=== PATIENT | female | born 1960 | race Caucasian/White ===

== ENCOUNTER 2023-12-26 08:55 | Outpatient (CLI) | payer MEDICAID ==
[~2023-12-26 08:55] MED LIST: BACL10TA PO; BUDE10.23 IH; CEFU500T66 PO; CHLO473M2 PO; CLON-850 PO; DILT180C66 PO; FLUT16SP10; GABA-338 PO; HYDR-4353 PO; LORA10TA7 PO; METF-900 PO; NAPR-56 PO; OMEP20CA4 PO; OXYB5TAB21 PO; SIMV-42 PO; TIOT18CA7 IH
== END 2023-12-26 23:59 | disposition home or self-care (01) ==
LOC: RAD 08:55
PROVIDERS: ATTEND Nurse Practitioner Family
DX: K76.0 Fatty (change of) liver, not elsewhere classified (principal); R31.9 Hematuria, unspecified; J01.90 Acute sinusitis, unspecified; J32.0 Chronic maxillary sinusitis; J32.3 Chronic sphenoidal sinusitis; R16.0 Hepatomegaly, not elsewhere classified
CPT/HCPCS: 70486; 76700

== ENCOUNTER 2024-11-16 12:46 | Emergency (ER) | payer MEDICAID ==
[~2024-11-16] VITALS: Ht 167.6 cm; Wt 67.2 kg
[2024-11-16 12:53] VITALS: BP 117/75; PULSE 95; RESP 15; O2SAT 95
--- NOTE | 2024-11-16 15:40 | Physician Documentation ---
History of Present Illness ~ Chief Complaint: Diarrhea Stated Complaint: URINARY AND BOWEL COMPLICATIONS Time Seen by MD: 15:19 Primary Medical Doctor: [facility] The patient is seen Today with multiple vague complaints with the most recent being diarrhea for the last couple of weeks. Patient states she has had diarrhea off and on for a few years now. Patient states she has had about 10 colonoscopies and extensive workup from her GI specialist. Patient admits to history of peptic ulcer disease and GERD and states she does take a proton pump inhibitor AcipHex. Patient denies any chest pain or shortness of breath but does admit to some lower abdominal discomfort as well as epigastric discomfort. Patient admits to history of urinary tract infections and does admit to some mild dysuria currently but denies any flank pain or fevers. Patient has no other concern or complaint at this time. Medication Reconciliation Allergies: Coded Allergies: Cephalexin Monohydrate (Verified Allergy, Severe, 04/10/12) Penicillins (Verified Allergy, Severe, 04/10/12) Sulfa (Sulfonamide Antibiotics) (Verified Allergy, Severe, 04/10/12) amoxicillin trihydrate (Verified Allergy, Severe, 04/10/12) duloxetine HCl (Verified Allergy, Severe, 04/10/12) erythromycin base (Verified Allergy, Severe, 04/10/12) hydromorphone HCl (Verified Allergy, Severe, 04/10/12) levofloxacin (Verified Allergy, Severe, 04/10/12) lisinopril (Verified Allergy, Severe, 04/10/12) morphine (Verified Allergy, Severe, 04/10/12) niacin (Verified Allergy, Severe, 04/10/12) potassium clavulanate (Verified Allergy, Severe, 04/10/12) simvastatin (Verified Allergy, Severe, 04/10/12) sulfamethoxazole (Verified Allergy, Severe, 04/10/12) tetracycline (Verified Allergy, Severe, 04/10/12) trimethoprim (Verified Allergy, Severe, 04/10/12) Macrolide Antibiotics (Verified Allergy, Unknown, 11/28/23) Quinolones (Verified Allergy, Unknown, 11/28/23) acetaminophen (Verified Allergy, Unknown, 11/28/23) amoxicillin (Verified Allergy, Unknown, 11/28/23) atorvastatin (Verified Allergy, Unknown, 11/28/23) cephalexin (Verified Allergy, Unknown, 11/28/23) ciprofloxacin (Verified Allergy, Unknown, 11/28/23) clavulanic acid (Verified Allergy, Unknown, 11/28/23) doxycycline (Verified Allergy, Unknown, 11/28/23) duloxetine (Verified Allergy, Unknown, 11/28/23) hydromorphone (Verified Allergy, Unknown, 11/28/23) nitrofurantoin (Verified Allergy, Unknown, 11/28/23) prednisone (Verified Allergy, Unknown, 11/28/23) propoxyphene (Verified Allergy, Unknown, 11/28/23) tramadol (Verified Allergy, Unknown, 11/28/23) Uncoded Allergies: CONTRAST (Allergy, Severe, 04/10/12) THYOZIDE (Allergy, Severe, SWELLING, 10/16/14) CONTRAST DYE (Allergy, Unknown, 08/29/16) DIOZIDE (Allergy, Unknown, 10/16/14) Scheduled Baclofen (Baclofen), 1 TABLET PO BID, (Reported) Budesonide/Formoterol Fumarate (Symbicort 160-4.5 Mcg Inhaler), 10.2 GM IH BID, (Reported) Cefuroxime Axetil (Cefuroxime), 1 TAB PO Q12H Chlorhexidine Gluconate (Chlorhexidine Gluconate), 15 ML PO Q12H Clonazepam (Klonopin), 0.5 MG PO HS, (Reported) Diltiazem Hcl CD* (Cardizem CD*), 1 CAP PO DAILY, (Reported) Gabapentin* (Gabapentin*), 300 MG PO TID, (Reported) Hydrocodone Bit/Acetaminophen ([place] 10-325 Tablet), 1-2 TABLET PO Q4H, (Reported) Loratadine (Loratadine), 1 TABLET PO DAILY, (Reported) Metformin Hcl* (Metformin ER*), 500 MG PO BID, (Reported) Naproxen (Naproxen), 1 TAB PO Q12H Omeprazole (Prilosec), 1 CAP PO DAILY, (Reported) Oxybutynin Chloride (Oxybutynin Chloride), 1 TABLET PO BID, (Reported) Simvastatin* (Zocor*), 20 MG PO HS, (Reported) Tiotropium [place]* (Spiriva*), 18 MCG IH DAILY, (Reported) Miscellaneous Medications Fluticasone Propionate (Flonase), (Reported) Past Medical History Past Medical History: Hypertension, Constipation, Diverticulosis, GERD Past Surgical History: appendectomy, cholecystectomy, hysterectomy, orthopedic surgeries, other Patient History: (CAD) Coronary arteriosclerosis FATHER MOTHER (DM Type 2) Diabetes mellitus type 2 MOTHER Alcohol Use: Occasionally Drug Use: none Lives with: Family, Other Lives In: Home Occupation: employed Review of Systems Constitutional: Denies: chills, fever, weakness Eyes: Denies: pain, blurred vision ENT: Denies: ear pain, nose pain, throat pain, mouth pain Respiratory: Denies: cough, shortness of breath Cardiovascular: Denies: chest pain, palpitations Gastrointestinal: Denies: abdominal pain, nausea, vomiting Genitourinary: Denies: burning, dysuria Female Genitalia: Denies: vaginal discharge, pelvic pain Neurological: Denies: headache, dizziness Musculoskeletal: Denies: pain, swelling Integumentary: Denies: rash, lesions Allergic/Immunologic: Denies: hives, itching Hematologic/Lymphatic: Denies: no symptoms reported Psychiatric: Denies: depression, anxiety Physical Exam Vital Signs: Temperature: 98.0, Source: Temporal, Heart Rate: 95, Respiratory Rate: 15, BP: 117/75, Pulse Oximetry: 95, Weight: 67.200 Physical Exam General: Awake and Alert, no acute distress. HEENT: Conjunctiva pink, Sclera clear, Mucus Membranes moist. Neck: Supple without masses and tenderness. Resp: Unlabored. Lungs clear to auscultation bilaterally. Heart: Regular Rate and rhythm, normal S1 and S2 without murmur, rub or gallop. Abdomen: On exam patient does have tenderness to palpation epigastric area as well as suprapubic area. There is no rebound and no guarding and no masses. Abdomen is soft and nondistended. Extremities: No cyanosis,clubbing or edema. Skin: Warm and Dry. Progress Results/Orders Results/Orders Orders - SAURABH RODGERS PAC Saline Lock (11/16/24 ) Cult Urine + [place] [address] (11/16/24 17:30) Completed Orders - SAURABH RODGERS PAC Cbc/Diff (11/16/24 15:33) Lipase (11/16/24 15:33) MG (11/16/24 15:33) Prochlorperazine Inj (Compazine Inj) (11/16/24 15:35) Mag & Alum Hydrox/Simeth Susp (Maalox Or (11/16/24 15:35) Normal Saline 1000ml (Sodium Chloride 10 (11/16/24 15:35) Lidocaine 2% Viscous (Xylocaine 2% Visco (11/16/24 15:33) BMP (11/16/24 15:33) Pantoprazole 40mg Iv (Protonix 40mg Iv) (11/16/24 15:35) Dicyclomine Capsule (Bentyl Capsule) (11/16/24 15:38) Loperamide Capsule (Imodium Capsule) (11/16/24 15:38) Lacticsepsis (11/16/24 17:05) Procalcitonin (11/16/24 17:05) Ua W/Microscopic, Cult If Ind (11/16/24 17:11) Medications Received in ER Medications (Trade) Dose Ordered Sig/Eren Route PRN Reason Start Time Stop Time Status Last Admin Dose Admin (Compazine inj) 10 mg ONCE ONCE IV 11/16/24 15:35 11/16/24 15:43 DC 11/16/24 16:40 10 MG (Maalox oral suspension) 30 ml ONCE ONCE PO 11/16/24 15:35 11/16/24 15:43 DC 11/16/24 16:41 30 ML (sodium chloride 1000ml IV soln) 1,000 ml ONCE ONCE IVB 11/16/24 15:35 11/16/24 15:43 DC 11/16/24 16:30 1,000 ML (Xylocaine 2% Viscous 15mL cup) 15 ml ONCE STAT MM 11/16/24 15:33 11/16/24 15:43 DC 11/16/24 16:40 15 ML (Protonix 40mg IV) 40 mg ONCE ONCE IV 11/16/24 15:35 11/16/24 15:43 DC 11/16/24 16:40 40 MG (Bentyl capsule) 20 mg ONCE STAT PO 11/16/24 15:38 11/16/24 15:43 DC 11/16/24 16:41 20 MG (Imodium capsule) 2 mg ONCE STAT PO 11/16/24 15:38 11/16/24 15:43 DC 11/16/24 16:41 2 MG Vital Signs 11/16/24 11/16/24 12:53 16:14 Temp 98.0 Pulse 95 Resp 15 B/P (MAP) 117/75 Pulse Ox 95 Laboratory Tests Test 11/16/24 15:52 11/16/24 17:11 White Blood Count 11.9 H Red Blood Count 4.66 Hemoglobin 13.7 Hematocrit 40.8 Mean Corpuscular Volume 87.5 Mean Corpuscular Hemoglobin 29.5 Mean Corpuscular Hemoglobin Concent 33.6 Red Cell Distribution Width 14.0 Platelet Count 270 Mean Platelet Volume 7.7 Neutrophils (%) (Auto) 71.3 Lymphocytes (%) (Auto) 19.8 L Monocytes (%) (Auto) 7.7 Eosinophils (%) (Auto) 1.0 Basophils (%) (Auto) 0.2 Neutrophils # (Auto) 8.5 H Lymphocytes # (Auto) 2.4 Monocytes # (Auto) 0.9 Eosinophils # (Auto) 0.1 Basophils # (Auto) 0.0 CBC Comment Sodium Level 137 Potassium Level 3.2 L Chloride Level 100 Carbon Dioxide Level 31.1 Anion Gap 6 L Blood Urea Nitrogen 9 Creatinine 0.98 H Estimated GFR/1.73 m2 58 BUN/Creatinine Ratio 9.2 L Glucose Level 120 H Lactic Acid Level 0.9 Calcium Level 8.7 Magnesium Level 2.1 Albumin 3.3 L Lipase 32 Procalcitonin < 0.05 Chemistry Comments Urine Specimen Description Cln catch midstream Urine Color Straw Urine Clarity Clear Urine pH 6.0 Urine Specific [place] <=1.005 Urine Protein Negative Urine Glucose (UA) Negative Urine Ketones Negative Urine Occult Blood Small Urine Nitrite Negative Urine Bilirubin Negative Urine Urobilinogen 0.2 Urine Leukocyte Esterase Trace H Urine RBC 20-50 Urine WBC 10-20 H Urine Squamous Epithelial Cells Few Urine Bacteria 3+ Urine Mucus Few Urine Culture Indicated Indicated Volume Urine Centrifuged 10 ml Urine Comment Medical Decision Making Findings The patient is seen Today with multiple vague complaints with the most recent being diarrhea for the last couple of weeks. Patient states she has had diarrhea off and on for a few years now. Patient states she has had about 10 colonoscopies and extensive workup from her GI specialist. Patient admits to history of peptic ulcer disease and GERD and states she does take a proton pump inhibitor AcipHex. Patient denies any chest pain or shortness of breath but does admit to some lower abdominal discomfort as well as epigastric discomfort. Patient admits to history of urinary tract infections and does admit to some mild dysuria currently but denies any flank pain or fevers. Patient has no other concern or complaint at this time. Patient was treated in the ED today with GI cocktail, Compazine IV 10 mg, Bentyl 20 mg by mouth, lidocaine 2% viscous by mouth 15 mL, loperamide capsule 2 mg by mouth, Maalox 30 mL by mouth, normal saline bolus IV, pantoprazole 40 mg IV. Patient states she is feeling much better. Patient was also given ceftriaxone IM. Patient states she has previously tolerated this medication without an allergic reaction. Shared decision-making utilized with the patient today. Patient states she is feeling much better now we will be discharged on sucralfate to be taken as directed she will continue her PPI and she was given prescription for Bentyl as well as well as Macrobid 100 mg to be taken by mouth twice a day for five days. Departure Disposition: HOME / SELF CARE / HOMELESS Impression: Primary Impression: Urinary tract infection Qualified Codes: N30.01 - Acute cystitis with hematuria Additional Impression: PUD (peptic ulcer disease) Referrals: NO PRIMARY CARE PROVIDER (PCP) Prescriptions Loperamide Hcl (Loperamide) 2 Mg Capsule 2 CAP PO Q6H for loose stool for 5 Days, #40 CAP 0 Refills Prov: SAURABH RODGERS 11/16/24 Sucralfate (Sucralfate) 1 Gram Tablet 1 TAB PO Q6H for 30 Days, #120 TAB 0 Refills Prov: SAURABH RODGERS 11/16/24 Dicyclomine HCl (Dicyclomine HCl) 20 Mg Tablet 1 TAB PO Q12H for irritable bowel symptoms for 30 Days, #60 TAB 0 Refills Prov: SAURABH RODGERS 11/16/24 Signature Scribe Signature: No scribe Attestation: No scribe SAURABH RODGERS November 16, 2024 15:40
[2024-11-16 16:24] LABS: BASOPHILS % (AUTO) 0.2 % (0-1); EOSINOPHILS # (AUTO) 0.1 X10'3 (0-0.9); HEMATOCRIT 40.8 % (35.0-45.0); HEMOGLOBIN 13.7 g/dl (12.0-16.0); LYMPHOCYTES # (AUTO) 2.4 X10'3 (1.1-4.8); LYMPHOCYTES % (AUTO) 19.8 % (21-51); MEAN CORPUSCULAR HEMOGLOBIN 29.5 PG (27.0-31.0); MEAN CORPUSCULAR HGB CONC 33.6 g/dL (33.0-36.5); MEAN CORPUSCULAR VOLUME 87.5 FL (78-98); MEAN PLATELET VOLUME 7.7 FL (7.4-10.4); MONOCYTES # (AUTO) 0.9 X10'3 (0-0.9); MONOCYTES % (AUTO) 7.7 % (2-12); NEUTROPHILS # (AUTO) 8.5 X10'3 (1.8-7.7); NEUTROPHILS % (AUTO) 71.3 % (42-75); PLATELET COUNT 270 X10'3 (140-440); RED BLOOD COUNT 4.66 X10'6 (4.20-5.60); WHITE BLOOD COUNT 11.9 X10'3 (4.5-11.0)
[2024-11-16] MEDS: normal saline 1000ML IV soln IVB ONE (16:30)
[2024-11-16 16:36] LABS: ALBUMIN 3.3 G/DL (3.4-5.0); ANION GAP 6 (8-16); BLOOD UREA NITROGEN 9 MG/DL (7-18); BUN/CREATININE RATIO 9.2 (10.0-20.0); CALCIUM 8.7 MG/DL (8.5-10.1); CHLORIDE 100 MMOL/L (99-107); CREATININE 0.98 MG/DL (0.40-0.90); GLUCOSE 120 MG/DL (70-104); LIPASE 32 U/L (16-77); MAGNESIUM 2.1 MG/DL (1.5-2.4); POTASSIUM 3.2 MMOL/L (3.5-5.1); SODIUM 137 MMOL/L (135-145); TOTAL CARBON DIOXIDE 31.1 MMOL/L (24-32); eCRCL 56 ML/MIN; eGFR 58 ML/MIN
[2024-11-16] MEDS: LIDOcaine 2% Viscous 15ml cup MM STA (16:40)
[2024-11-16] MEDS: proCHLORperazine 10 MG/2 ml inj IV ONE (16:40)
[2024-11-16] MEDS: pantoprazole 40 MG vial IV ONE (16:40)
[2024-11-16] MEDS: mag hydrox/Alum hydrox/simeth 30ml oral suspension PO ONE (16:41)
[2024-11-16] MEDS: loperamide 2mg capsule PO STA (16:41)
[2024-11-16] MEDS: dicyclomine 10 MG capsule PO STA (16:41)
[2024-11-16 17:20] LABS: BILIRUBIN,URINE NEGATIVE (Neg); CLARITY,URINE CLEAR (Clear); COLOR,URINE STRAW (Yellow); GLUCOSE, URINE NEGATIVE (Neg); KETONES,URINE NEGATIVE (Neg); LEUKOCYTE ESTERASE ,URINE TRACE (Neg); NITRITES, URINE NEGATIVE (Neg); OCCULT BLOOD,URINE SMALL (Neg); PROTEIN,URINE NEGATIVE (Neg); UROBILINOGEN,URINE 0.2 E.U/dL (0.2-1.0)
[2024-11-16 17:21] LABS: UA COLLECTION TYPE CLN CATCH MIDSTREAM
[2024-11-16 17:28] LABS: RBC,URINE 20-50 /HPF (0-2)
[2024-11-16 17:29] LABS: BACTERIA,URINE 3+ /HPF (Neg); MUCUS STRANDS FEW /LPF (Neg); SQUAMOUS EPITHELIAL CELL,UR FEW /LPF (FEW)
[2024-11-16] MEDS ORDERED: LOPE2CAP PO (18:29)
[2024-11-16] MEDS ORDERED: DICY20TA17 PO (18:29)
[2024-11-16] MEDS ORDERED: SUCR1TAB PO (18:29)
[2024-11-16 18:41] VITALS: TEMP 98
[2024-11-16] MEDS: CefTRIAXone 1000mg IM Kit (w/lidocaine diluent) IM STA (18:45)
== END 2024-11-16 18:51 | disposition home or self-care (01) ==
LOC: ER 12:48
DX: N39.0 Urinary tract infection, site not specified (principal); K27.9 Peptic ulcer, site unspecified, unspecified as acute or chronic, without hemorrhage or perforation; I25.10 Atherosclerotic heart disease of native coronary artery without angina pectoris; I10 Essential (primary) hypertension; E11.9 Type 2 diabetes mellitus without complications; K21.9 Gastro-esophageal reflux disease without esophagitis; Z88.0 Allergy status to penicillin; Z88.2 Allergy status to sulfonamides; Z88.1 Allergy status to other antibiotic agents; Z88.5 Allergy status to narcotic agent; Z88.8 Allergy status to other drugs, medicaments and biological substances; Z90.49 Acquired absence of other specified parts of digestive tract; Z90.710 Acquired absence of both cervix and uterus; Z79.84 Long term (current) use of oral hypoglycemic drugs; Z79.899 Other long term (current) drug therapy; Z72.89 Other problems related to lifestyle
CPT/HCPCS: 36415; 80048; 81001; 83605; 83690; 83735; 84145; 85025; 87077; 87088; 87186; 96361; 96372; 96374; 96375; 99284; J0696; J0780; J2470; J7030

== ENCOUNTER 2024-11-25 22:44 | Emergency (ER) | payer MEDICAID ==
[~2024-11-25] VITALS: Ht 167.6 cm; Wt 67.0 kg
[~2024-11-25 22:44] MED LIST changes: +DICY20TA17 PO; +LOPE2CAP PO; +SUCR1TAB PO
--- NOTE | 2024-11-26 00:35 | Physician Documentation ---
History of Present Illness ~ Chief Complaint: Constipation Stated Complaint: CONSTIPATION Time Seen by MD: 00:34 Primary Medical Doctor: [facility] HPI 64-year-old female, history of IBS, who presents with multiple complaints including constipation. The patient tells me a long history of chronic abdominal symptoms including acid reflux, ulcers, diarrhea, constipation, abdominal pain. She has had an extensive workup in the past including imaging, she sees a GI specialist, has had endoscopy and colonoscopies multiple times. She is on a daily antacid medication and a generic form of sucralfate. She presents today with constipation. She tells me that she was seen here in the emergency department recently and at that time was having loose stools. She was started on some new medications including Imodium. Then over the past week or more, she has been having constipation. She tells me that she has not had a good bowel movement in the last 9 days. She is passing small hard stools. She feels like she has a hard stool ball in her rectum. She reports generalized abdominal pain but no significant focal pain. No vomiting. No fevers. She did take MiraLax today. No other treatments tried. Medication Reconciliation Allergies: Coded Allergies: Cephalexin Monohydrate (Verified Allergy, Severe, 04/10/12) Penicillins (Verified Allergy, Severe, 04/10/12) Sulfa (Sulfonamide Antibiotics) (Verified Allergy, Severe, 04/10/12) amoxicillin trihydrate (Verified Allergy, Severe, 04/10/12) duloxetine HCl (Verified Allergy, Severe, 04/10/12) erythromycin base (Verified Allergy, Severe, 04/10/12) hydromorphone HCl (Verified Allergy, Severe, 04/10/12) levofloxacin (Verified Allergy, Severe, 04/10/12) lisinopril (Verified Allergy, Severe, 04/10/12) morphine (Verified Allergy, Severe, 04/10/12) niacin (Verified Allergy, Severe, 04/10/12) potassium clavulanate (Verified Allergy, Severe, 04/10/12) simvastatin (Verified Allergy, Severe, 04/10/12) sulfamethoxazole (Verified Allergy, Severe, 04/10/12) tetracycline (Verified Allergy, Severe, 04/10/12) trimethoprim (Verified Allergy, Severe, 04/10/12) Macrolide Antibiotics (Verified Allergy, Unknown, 11/28/23) Quinolones (Verified Allergy, Unknown, 11/28/23) acetaminophen (Verified Allergy, Unknown, 11/28/23) amoxicillin (Verified Allergy, Unknown, 11/28/23) atorvastatin (Verified Allergy, Unknown, 11/28/23) cephalexin (Verified Allergy, Unknown, 11/28/23) ciprofloxacin (Verified Allergy, Unknown, 11/28/23) clavulanic acid (Verified Allergy, Unknown, 11/28/23) doxycycline (Verified Allergy, Unknown, 11/28/23) duloxetine (Verified Allergy, Unknown, 11/28/23) hydromorphone (Verified Allergy, Unknown, 11/28/23) nitrofurantoin (Verified Allergy, Unknown, 11/28/23) prednisone (Verified Allergy, Unknown, 11/28/23) propoxyphene (Verified Allergy, Unknown, 11/28/23) tramadol (Verified Allergy, Unknown, 11/28/23) Uncoded Allergies: CONTRAST (Allergy, Severe, 04/10/12) THYOZIDE (Allergy, Severe, SWELLING, 10/16/14) CONTRAST DYE (Allergy, Unknown, 08/29/16) DIOZIDE (Allergy, Unknown, 10/16/14) Scheduled Baclofen (Baclofen), 1 TABLET PO BID, (Reported) Budesonide/Formoterol Fumarate (Symbicort 160-4.5 Mcg Inhaler), 10.2 GM IH BID, (Reported) Cefuroxime Axetil (Cefuroxime), 1 TAB PO Q12H Chlorhexidine Gluconate (Chlorhexidine Gluconate), 15 ML PO Q12H Clonazepam (Klonopin), 0.5 MG PO HS, (Reported) Dicyclomine HCl (Dicyclomine HCl), 1 TAB PO Q12H Diltiazem Hcl CD* (Cardizem CD*), 1 CAP PO DAILY, (Reported) Gabapentin* (Gabapentin*), 300 MG PO TID, (Reported) Hydrocodone Bit/Acetaminophen ([place] 10-325 Tablet), 1-2 TABLET PO Q4H, (Reported) Loperamide Hcl (Loperamide), 2 CAP PO Q6H Loratadine (Loratadine), 1 TABLET PO DAILY, (Reported) Metformin Hcl* (Metformin ER*), 500 MG PO BID, (Reported) Naproxen (Naproxen), 1 TAB PO Q12H Omeprazole (Prilosec), 1 CAP PO DAILY, (Reported) Oxybutynin Chloride (Oxybutynin Chloride), 1 TABLET PO BID, (Reported) Simvastatin* (Zocor*), 20 MG PO HS, (Reported) Sucralfate (Sucralfate), 1 TAB PO Q6H Tiotropium [place]* (Spiriva*), 18 MCG IH DAILY, (Reported) Miscellaneous Medications Fluticasone Propionate (Flonase), (Reported) Past Medical History Past Medical History: Hypertension, Constipation, Diverticulosis, GERD Past Surgical History: appendectomy, cholecystectomy, hysterectomy, orthopedic surgeries, other Patient History: (CAD) Coronary arteriosclerosis FATHER MOTHER (DM Type 2) Diabetes mellitus type 2 MOTHER Alcohol Use: Occasionally Drug Use: none Lives with: Family, Other Lives In: Home Occupation: employed Review of Systems Constitutional: Denies: fever Gastrointestinal: Reports: abdominal pain, constipated; Denies: nausea, vomiting Physical Exam Vital Signs: Temperature: 98.3, Heart Rate: 80, Respiratory Rate: 16, BP: 174/78, Pulse Oximetry: 97, Weight: 67.000 Oxygen Flow Rate: 0 Physical Exam General: This is a overall well-appearing middle-aged female, extremely talkative, partner at bedside HEENT: Atraumatic, oropharynx is moist Heart: Regular rate and rhythm, normal-appearing peripheral perfusion Lungs: Clear breath sounds bilateral, normal work of breathing, normal oxygen saturation on room air Abdomen: Soft, nondistended, no grimacing or pain response to deep palpation in all quadrants while she is distracted, while she is watching me, she does report epigastric tenderness only Neuro: Alert and oriented, no focal deficits Psychiatric: Calm and cooperative with exam, very verbose Progress Results/Orders Results/Orders Orders - KYLE ENGLAND MD Mineral Oil Enema (Mineral Oil Enema) (11/26/24 01:30) Completed Orders - KYLE ENGLAND MD Glycerin Pediatric Rectal Supp (Glycerin (11/26/24 01:30) Magnesium Hydrox Oral Susp. (Milk Of Mag (11/26/24 01:30) Vital Signs 11/25/24 23:00 Temp 98.3 Pulse 80 Resp 16 B/P (MAP) 174/78 Pulse Ox 97 O2 Flow Rate 0 Medical Decision Making Diff Dx Pain:Considerations: Include: Bowel obstruction, Constipation Diff Dx Rectal:Considerations: Include: Impaction Additional Comments The patient presents with constipation, with multiple ongoing chronic abdominal complaints. She has a benign abdominal exam. She has no vomiting or fever. Per her history and exam I suspect that she has constipation related to irritable bowel syndrome and Imodium use. She does not appear clinically dehydrated. I doubt a medical or surgical emergency. She will be treated with a glycerin suppository, an enema, and milk of magnesia. She was given home care instructions including ongoing laxative use. She can follow up with her outpatient doctor or GI specialist. Departure Time of Disposition: 01:32 Disposition: HOME / SELF CARE / HOMELESS Impression: Primary Impression: Constipation Condition: Stable Discharge Instructions: Fecal Impaction Referrals: NO PRIMARY CARE PROVIDER (PCP) Education Educated: Patient, Family Educated regarding: diagnosis, treatment, need for follow up Signature Scribe Signature: na Attestation: KYLE Wills MD November 26, 2024 00:35
[2024-11-26] MEDS ORDERED: glycerin pediatric rectal suppository RC ONE (01:30)
[2024-11-26] MEDS: mineral oil 133ml enema RC PRN (02:10)
[2024-11-26] MEDS: magnesium hydroxide 30ml (MOM) UD suspension PO ONE (02:10)
[2024-11-26] MEDS: bisacodyl 10mg suppository rectal RC ONE (02:38)
[2024-11-26 02:39] VITALS: BP 126/76; PULSE 62; RESP 10; TEMP 98.3; O2SAT 95
== END 2024-11-26 02:41 | disposition home or self-care (01) ==
LOC: ER 22:45
DX: K59.00 Constipation, unspecified (principal); K21.9 Gastro-esophageal reflux disease without esophagitis; I10 Essential (primary) hypertension; I25.10 Atherosclerotic heart disease of native coronary artery without angina pectoris; Z88.0 Allergy status to penicillin; Z88.2 Allergy status to sulfonamides; Z88.5 Allergy status to narcotic agent; Z88.8 Allergy status to other drugs, medicaments and biological substances; Z90.49 Acquired absence of other specified parts of digestive tract; Z90.710 Acquired absence of both cervix and uterus
CPT/HCPCS: 99284

== ENCOUNTER 2024-12-04 14:29 | Inpatient (IN) | payer MEDICAID ==
[~2024-12-04] VITALS: Ht 170.2 cm; Wt 68.3 kg
--- NOTE | 2024-12-04 14:45 | Physician Documentation ---
History of Present Illness ~ General Chief Complaint: Multiple Medical Complaints Stated Complaint: KIDNEY PAIN Time Seen by MD: 15:11 Primary Medical Doctor: [facility] History of Present Illness Initial Comments 64-year-old female who presents to the emergency department with the complaints of dysuria, or frequent urination and suprapubic discomfort. Reports she has a longstanding history of recurrent UTIs interstitial cystitis. Most recently had a UTI he has never resolved. Reports that she was given an injection of ceftriaxone two weeks ago and given p.o. antibiotics however did not get better. He is awaiting cystoscopy for hematuria. She is a smoker. He is very aggravated that your symptoms have not been treated aggressively inappropriately. She does have systemic symptoms that of myalgias lower back pain and nausea. Patient has numerous allergies to antibiotics. Likely this is contributory to her failure of resolution. Medication Reconciliation Allergies: Coded Allergies: Cephalexin Monohydrate (Verified Allergy, Severe, 04/10/12) Penicillins (Verified Allergy, Severe, 04/10/12) Sulfa (Sulfonamide Antibiotics) (Verified Allergy, Severe, 04/10/12) amoxicillin trihydrate (Verified Allergy, Severe, 04/10/12) duloxetine HCl (Verified Allergy, Severe, 04/10/12) erythromycin base (Verified Allergy, Severe, 04/10/12) hydromorphone HCl (Verified Allergy, Severe, 04/10/12) levofloxacin (Verified Allergy, Severe, 04/10/12) lisinopril (Verified Allergy, Severe, 04/10/12) morphine (Verified Allergy, Severe, 04/10/12) niacin (Verified Allergy, Severe, 04/10/12) potassium clavulanate (Verified Allergy, Severe, 04/10/12) simvastatin (Verified Allergy, Severe, 04/10/12) sulfamethoxazole (Verified Allergy, Severe, 04/10/12) tetracycline (Verified Allergy, Severe, 04/10/12) trimethoprim (Verified Allergy, Severe, 04/10/12) Macrolide Antibiotics (Verified Allergy, Unknown, 11/28/23) Quinolones (Verified Allergy, Unknown, 11/28/23) acetaminophen (Verified Allergy, Unknown, 11/28/23) amoxicillin (Verified Allergy, Unknown, 11/28/23) atorvastatin (Verified Allergy, Unknown, 11/28/23) cephalexin (Verified Allergy, Unknown, 11/28/23) ciprofloxacin (Verified Allergy, Unknown, 11/28/23) clavulanic acid (Verified Allergy, Unknown, 11/28/23) doxycycline (Verified Allergy, Unknown, 11/28/23) duloxetine (Verified Allergy, Unknown, 11/28/23) hydromorphone (Verified Allergy, Unknown, 11/28/23) nitrofurantoin (Verified Allergy, Unknown, 11/28/23) prednisone (Verified Allergy, Unknown, 11/28/23) propoxyphene (Verified Allergy, Unknown, 11/28/23) tramadol (Verified Allergy, Unknown, 11/28/23) Uncoded Allergies: CONTRAST (Allergy, Severe, 04/10/12) THYOZIDE (Allergy, Severe, SWELLING, 10/16/14) CONTRAST DYE (Allergy, Unknown, 08/29/16) DIOZIDE (Allergy, Unknown, 10/16/14) Scheduled Baclofen (Baclofen), 1 TABLET PO BID, (Reported) Budesonide/Formoterol Fumarate (Symbicort 160-4.5 Mcg Inhaler), 10.2 GM IH BID, (Reported) Cefuroxime Axetil (Cefuroxime), 1 TAB PO Q12H Chlorhexidine Gluconate (Chlorhexidine Gluconate), 15 ML PO Q12H Clonazepam (Klonopin), 0.5 MG PO HS, (Reported) Dicyclomine HCl (Dicyclomine HCl), 1 TAB PO Q12H Diltiazem Hcl CD* (Cardizem CD*), 1 CAP PO DAILY, (Reported) Gabapentin* (Gabapentin*), 300 MG PO TID, (Reported) Hydrocodone Bit/Acetaminophen (Bailey 10-325 Tablet), 1-2 TABLET PO Q4H, (Reported) Loperamide Hcl (Loperamide), 2 CAP PO Q6H Loratadine (Loratadine), 1 TABLET PO DAILY, (Reported) Metformin Hcl* (Metformin ER*), 500 MG PO BID, (Reported) Naproxen (Naproxen), 1 TAB PO Q12H Omeprazole (Prilosec), 1 CAP PO DAILY, (Reported) Oxybutynin Chloride (Oxybutynin Chloride), 1 TABLET PO BID, (Reported) Simvastatin* (Zocor*), 20 MG PO HS, (Reported) Sucralfate (Sucralfate), 1 TAB PO Q6H Tiotropium [place]* (Spiriva*), 18 MCG IH DAILY, (Reported) Miscellaneous Medications Fluticasone Propionate (Flonase), (Reported) Past Medical History Past Medical History: Hypertension, Constipation, Diverticulosis, GERD Past Surgical History: appendectomy, cholecystectomy, hysterectomy, orthopedic surgeries, other Patient History: (CAD) Coronary arteriosclerosis FATHER MOTHER (DM Type 2) Diabetes mellitus type 2 MOTHER Alcohol Use: Occasionally Drug Use: none Lives with: Family, Other Lives In: Home Occupation: employed Review of Systems Genitourinary: Reports: burning, discharge, dysuria, frequency, flank pain, hematuria Physical Exam Physical Exam Vital Signs: RN Vital Signs have been reviewed: Yes, Temperature: 100.1, Heart Rate: 106, Respiratory Rate: 15, BP: 125/101, Pulse Oximetry: 94, Weight: 68.300 General Appearance: alert, WD/WN Head: normal inspection Face: normal inspection Pupils/EOM/Fundus: PERRLA Nose: normal inspection Oropharynx: normal inspection Neck: non-tender Respiratory: normal breath sounds Cardiovascular: normal peripheral pulses, regular rate, rhythm Back: normal inspection Extremities: normal range of motion Neurologic: oriented x4, practice managers II-XII nml as tested Motor / Sensory: no motor deficit, no sensory deficit Psychiatric: normal mood/affect Skin: normal color, warm/dry; No: rash Progress Results/Orders Results/Orders Orders - KYLE FOFANA PAC Culture Blood (12/04/24 15:42) Chest,Single View (12/04/24 15:42) Ultrasound Kidney Non Vasc (12/04/24 15:58) Page Hospitalist (12/04/24 17:23) Fill Out Med Reconciliation (12/04/24 17:23) Completed Orders - KYLE FOFANA PAC Electrocardiogram (12/04/24 15:42) Chest,Single View (12/04/24 15:42) Procalcitonin (12/04/24 15:42) Lacticsepsis (12/04/24 15:42) Normal Saline 1000ml (Sodium Chloride 10 (12/04/24 15:45) Ceftriaxone/[id number]-Uczgyojv 1gm (Rocephin 1 (12/04/24 15:45) Ultrasound Kidney Non Vasc (12/04/24 15:58) Medications Received in ER Medications (Trade) Dose Ordered Sig/Eren Route PRN Reason Start Time Stop Time Status Last Admin Dose Admin Sodium Chloride 1,000 ml @ 1,000 mls/hr ONCE ONCE IV 12/04/24 15:45 12/04/24 16:44 DC 12/04/24 16:35 1,000 MLS/HR Ceftriaxone Sodium 50 ml @ 100 mls/hr ONCE ONCE IV 12/04/24 15:45 12/04/24 16:14 DC 12/04/24 16:35 100 MLS/HR Vital Signs 12/04/24 12/04/24 12/04/24 12/04/24 14:33 16:01 16:36 18:14 Temp 100.1 Pulse 106 102 97 Resp 15 16 16 27 B/P (MAP) 125/101 136/63 (87) 157/83 (107) Pulse Ox 94 92 12/04/24 12/04/24 18:45 18:46 Pulse 73 Resp 16 16 B/P (MAP) 116/62 (80) Pulse Ox 94 Laboratory Tests Test 12/04/24 15:11 12/04/24 15:56 White Blood Count 5.3 Red Blood Count 4.68 Hemoglobin 13.8 Hematocrit 40.5 Mean Corpuscular Volume 86.5 Mean Corpuscular Hemoglobin 29.5 Mean Corpuscular Hemoglobin Concent 34.1 Red Cell Distribution Width 13.7 Platelet Count 184 Mean Platelet Volume 7.7 Neutrophils (%) (Auto) 75.2 H Lymphocytes (%) (Auto) 16.6 L Monocytes (%) (Auto) 7.9 Eosinophils (%) (Auto) 0 Basophils (%) (Auto) 0.3 Neutrophils # (Auto) 4.0 Lymphocytes # (Auto) 0.9 L Monocytes # (Auto) 0.4 Eosinophils # (Auto) 0.0 Basophils # (Auto) 0.0 CBC Comment Sodium Level 133 L Potassium Level 3.5 Chloride Level 97 L Carbon Dioxide Level 31.2 Anion Gap 5 L Blood Urea Nitrogen 7 Creatinine 0.88 Estimated GFR/1.73 m2 65 BUN/Creatinine Ratio 8.0 L Glucose Level 118 H Lactic Acid Level 1.2 Calcium Level 8.5 Magnesium Level 1.9 Total Bilirubin 0.3 Aspartate Amino Transf (AST/SGOT) 21 Alanine Aminotransferase (ALT/SGPT) 11 L Alkaline Phosphatase 74 Total Protein 6.9 Albumin 3.2 L Globulin 3.7 Albumin/Globulin Ratio 0.9 L Lipase 48 Procalcitonin < 0.05 Chemistry Comments Urine Specimen Description Mckeon cath Urine Color Dark yellow Urine Clarity Clear Urine pH 6.0 Urine Specific [place] >=1.030 Urine Protein 30 H Urine Glucose (UA) Negative Urine Ketones 15 H Urine Occult Blood Moderate H Urine Nitrite Negative Urine Bilirubin Negative Urine Urobilinogen 1.0 Urine Leukocyte Esterase Trace H Urine RBC 3-10 Urine WBC 30-50 H Urine Squamous Epithelial Cells Few Urine Bacteria 1+ Urine Coarse Granular Casts 0-3 Urine Mucus Few Urine Culture Indicated Indicated Volume Urine Centrifuged 10 ml Urine HCG, Qualitative Negative Urine Comment Microbiology Date/Time Source Procedure Growth Status 12/04/24 16:21 Urine Mckeon Cath Urine Culture - Preliminary Culture received. Resulted Medical Decision Making Differential Diagnosis 64-year-old female presents to the emergency department because she has failed outpatient therapy for urinary tract infection and now has systemic symptoms that likely that of consistent with early pyelonephritis. Patient is a benefit from hospitalization fluids and antibiotics along with consideration for ID consult. Patient's labs all reassuring, urinalysis consistent with urinary tract infection. No ELÍAS noted. Some imaging reassuring for no hydro and/or renal lithiasis or pyelo. Patient awaits evaluation by hospitalist for admission to the hospital for further management unresolved UTI and hematuria. Departure Disposition: ADMITTED INPATIENT Admitted to Inpatient Unit: to hospitalist Impression: Primary Impression: Recurrent UTI Additional Impressions: Hematuria Qualified Codes: R31.9 - Hematuria, unspecified Smoker Referrals: NO PRIMARY CARE PROVIDER (PCP) Additional Comment Medical Screen Exam History: This 64-year-old female presenting with flank pain and constipation, patient reports chills at home last bowel movement 11 days prior. Patient reports extensive medical history that she has been worked up by primary care provider for Exam: VITALS: Reviewed and as above. GENERAL: Alert, nontoxic appearing, no apparent distress. RESPIRATORY: No increased work of breathing, no respiratory distress, speaking in full clear sentences MSE performed in triage and patient returned to ED lobby by nursing staffThe note accurately reflects work and decisions made by me.BILLY Fried 12/04/24 14:45 Signature Scribe Signature: . Attestation: . BERNARD ALVARADOP Dec 04, 2024 14:45 KYLE FOFANA [facility] Dec 04, 2024 17:25
[2024-12-04 15:39] LABS: BASOPHILS % (AUTO) 0.3 % (0-1); EOSINOPHILS % (AUTO) 0 % (0-6); HEMATOCRIT 40.5 % (35.0-45.0); HEMOGLOBIN 13.8 g/dl (12.0-16.0); LYMPHOCYTES # (AUTO) 0.9 X10'3 (1.1-4.8); LYMPHOCYTES % (AUTO) 16.6 % (21-51); MEAN CORPUSCULAR HEMOGLOBIN 29.5 PG (27.0-31.0); MEAN CORPUSCULAR HGB CONC 34.1 g/dL (33.0-36.5); MEAN CORPUSCULAR VOLUME 86.5 FL (78-98); MEAN PLATELET VOLUME 7.7 FL (7.4-10.4); MONOCYTES # (AUTO) 0.4 X10'3 (0-0.9); MONOCYTES % (AUTO) 7.9 % (2-12); NEUTROPHILS % (AUTO) 75.2 % (42-75); PLATELET COUNT 184 X10'3 (140-440); RED BLOOD COUNT 4.68 X10'6 (4.20-5.60); RED CELL DISTRIBUTION WIDTH 13.7 % (11.5-14.5); WHITE BLOOD COUNT 5.3 X10'3 (4.5-11.0)
[2024-12-04 16:00] LABS: ALANINE AMINOTRANSFERASE 11 U/L (12-78); ALBUMIN 3.2 G/DL (3.4-5.0); ALBUMIN/GLOBULIN RATIO 0.9 (1.1-1.5); ALKALINE PHOSPHATASE 74 IU/L (46-116); ANION GAP 5 (8-16); ASPARTATE AMINO TRANSFERASE 21 U/L (10-37); BILIRUBIN,TOTAL 0.3 MG/DL (0.1-1.0); BLOOD UREA NITROGEN 7 MG/DL (7-18); CALCIUM 8.5 MG/DL (8.5-10.1); CHLORIDE 97 MMOL/L (99-107); CREATININE 0.88 MG/DL (0.40-0.90); GLUCOSE 118 MG/DL (70-104); LIPASE 48 U/L (16-77); POTASSIUM 3.5 MMOL/L (3.5-5.1); SODIUM 133 MMOL/L (135-145); TOTAL CARBON DIOXIDE 31.2 MMOL/L (24-32); TOTAL PROTEIN 6.9 G/DL (6.4-8.2); eCRCL 64 ML/MIN; eGFR 65 ML/MIN
[2024-12-04 16:12] LABS: BILIRUBIN,URINE NEGATIVE (Neg); CLARITY,URINE CLEAR (Clear); GLUCOSE, URINE NEGATIVE (Neg); KETONES,URINE 15 mg/dl (Neg); LEUKOCYTE ESTERASE ,URINE TRACE (Neg); NITRITES, URINE NEGATIVE (Neg); OCCULT BLOOD,URINE MODERATE (Neg); PROTEIN,URINE 30 mg/dl (Neg)
[2024-12-04 16:14] LABS: UA COLLECTION TYPE FOLEY CATH
[2024-12-04 16:17] LABS: COLOR,URINE DARK YELLOW (Yellow)
[2024-12-04 16:20] LABS: BACTERIA,URINE 1+ /HPF (Neg); MUCUS STRANDS FEW /LPF (Neg); SQUAMOUS EPITHELIAL CELL,UR FEW /LPF (FEW); WBC,URINE 30-50 /HPF (0-4)
[2024-12-04 16:21] LABS: COARSE GRANULAR CAST 0-3 /LPF (NEGATIVE)
--- NOTE | 2024-12-04 16:32 | RADIOLOGY REPORT ---
CHEST RADIOGRAPH Indication: SEPSIS Technique: Single frontal view of the chest was obtained The study is under penetrated. Technical factors render the study to be nondiagnostic . Repeat chest x-ray recommended. 1.
[2024-12-04] MEDS: CefTRIAXone/D5W-Rocephin 1gm 50 ML IV ONE (16:35)
[2024-12-04] MEDS: normal saline 1000ml 1,000 ML IV ONE (16:35)
[2024-12-04 17:03] LABS: MAGNESIUM 1.9 MG/DL (1.5-2.4)
--- NOTE | 2024-12-04 17:07 | ELECTROCARDIOGRAPH REPORT ---
[facility] Test Date: 2024-12-04 Test Time: 16:12:48 Pat Name: JENNIFER RENEE Department: [facility] Patient ID: [id number] Room: ORTHO [facility] Gender: F [employer]: : [id number] Requested By: KYLE FOFANA Order Number: [id number] Reading MD: Dr. Gumaro Travis Measurements Intervals [place] Rate: 100 P: 73 MD: 180 QRS: 66 QRSD: 90 T: 64 QT: 329 QTc: 425 Interpretive Statements Sinus tachycardia Anteroseptal infarct, age indeterminate Electronically Signed On 12-06-2024 6:35:[address] Gumaro Travis Please click the below link to view image of tracing.
[2024-12-04 17:18] LABS: URINE HCG NEGATIVE (NEG)
--- NOTE | 2024-12-04 17:49 | RADIOLOGY REPORT ---
RENAL ULTRASOUND CLINICAL HISTORY: HYdro/Pyelo TECHNIQUE: Multiple grayscale ultrasound images were obtained through the kidneys and urinary bladder . COMPARISON: None FINDINGS: Right kidney: Measures 10.0 x 4.7 x 6.0 cm. No hydronephrosis. Left kidney: Measures 11.8 x 5.7 x 5.3 cm. No hydronephrosis. Urinary bladder: Unremarkable. Prevoid volume is 467 mL. The left ureteral jet is seen. The right u reteral jet is not visualized. IMPRESSION: Normal size kidneys without evidence of hydronephrosis.
[2024-12-04] MEDS ORDERED: potassium Cl 20 mEq SR tablet PO PRN (20:35)
[2024-12-04] MEDS ORDERED: magnesium Cl slow-release 64mg tablet PO PRN (20:35)
[2024-12-04] MEDS ORDERED: ipratropium/albuterol 3ml nebule NEB PRN (20:35)
[2024-12-04] MEDS ORDERED: potassium Cl 40MEQ/1/2NS 520ml 520 ML IV PRN (20:35)
[2024-12-04] MEDS ORDERED: magnesium sulf-water 2g/50mL 50 ML IV PRN (20:35)
[2024-12-04] MEDS ORDERED: magnesium sulf-water 4G/100mL 100 ML IV PRN (20:35)
[2024-12-04 21:01] LABS: HEMOGLOBIN A1C 5.5 % (4.5-6.2)
[2024-12-04] MEDS: methylPREDNISolone sod succ 125mg/2ml vial IV ONE (21:11)
[2024-12-04] MEDS: normal saline 1000ml 1,000 ML IV SCH (21:12)
[2024-12-04] MEDS: acetaminophen 325mg tablet PO PRN (21:32)
[2024-12-04] MEDS: ondansetron/PF 4mg/2ml inj IV PRN (21:35)
[2024-12-04 22:00] VITALS: BP 152/62; PULSE 93; RESP 16; TEMP 97.2; O2SAT 93
[2024-12-04 22:21] VITALS: PULSE 93; RESP 16; O2SAT 93
[2024-12-04] MEDS: ipratropium/albuterol 3ml nebule NEB SCH (22:21)
[2024-12-04 22:31] VITALS: PULSE 95; RESP 16
--- NOTE | 2024-12-04 23:31 | HISTORY AND PHYSICAL-Residence ---
History & Physical Providers to CC Resident Creating Document: CALLI ELENA ZA ~ History of Present Illness Primary Medical Doctor: [facility] Reason for Admit\Complaint: Urinary symptoms, SOB History of Present Illness The patient is a 64-year-old female with a medical history of COPD, not on home oxygen, DM, HTN, recurrent urinary tract infections (five episodes this year) who presents with complaints of burning urination,, suprapubic discomfort, urinary frequency, and increased shortness of breath. She reports a longstanding history of recurrent UTIs, with the most recent episode couple of weeks so go never fully resolving despite outpatient oral antibiotic treatment. She is currently awaiting cystoscopy for evaluation of hematuria. She denies flank pain, but endorsed dysuria frequency, urgency, and persistent suprapubic tenderness. In addition, she reports worsening shortness of breath, productive cough with brownish sputum, and intermittent fever with chills. She continues to smoke half a pack per day, with a 50 pack year history. She uses two inhalers and nebulizer at home, but states that they have offered minimal relief during this episode. She denies recent travel, new exposure, or sick contacts. No nausea, vomiting, or chest pain reported. Allergies: Coded Allergies: Cephalexin Monohydrate (Verified Allergy, Severe, 12/04/24) Penicillins (Verified Allergy, Severe, 12/04/24) Sulfa (Sulfonamide Antibiotics) (Verified Allergy, Severe, 04/10/12) amoxicillin trihydrate (Verified Allergy, Severe, 12/04/24) duloxetine HCl (Verified Allergy, Severe, 12/04/24) erythromycin base (Verified Allergy, Severe, 12/04/24) hydromorphone HCl (Verified Allergy, Severe, 12/04/24) levofloxacin (Verified Allergy, Severe, 12/04/24) lisinopril (Verified Allergy, Severe, 12/04/24) morphine (Verified Allergy, Severe, 12/04/24) niacin (Verified Allergy, Severe, 12/04/24) potassium clavulanate (Verified Allergy, Severe, 12/04/24) simvastatin (Verified Allergy, Severe, 12/04/24) sulfamethoxazole (Verified Allergy, Severe, 12/04/24) tetracycline (Verified Allergy, Severe, 12/04/24) trimethoprim (Verified Allergy, Severe, 12/04/24) Macrolide Antibiotics (Verified Allergy, Unknown, 12/04/24) Quinolones (Verified Allergy, Unknown, 12/04/24) amoxicillin (Verified Allergy, Unknown, 12/04/24) atorvastatin (Verified Allergy, Unknown, 12/04/24) cephalexin (Verified Allergy, Unknown, 12/04/24) ciprofloxacin (Verified Allergy, Unknown, 12/04/24) clavulanic acid (Verified Allergy, Unknown, 12/04/24) doxycycline (Verified Allergy, Unknown, 12/04/24) duloxetine (Verified Allergy, Unknown, 12/04/24) hydromorphone (Verified Allergy, Unknown, 12/04/24) nitrofurantoin (Verified Allergy, Unknown, 12/04/24) prednisone (Verified Allergy, Unknown, 12/04/24) propoxyphene (Verified Allergy, Unknown, 12/04/24) tramadol (Verified Allergy, Unknown, 12/04/24) Uncoded Allergies: CONTRAST (Allergy, Severe, 04/10/12) THYOZIDE (Allergy, Severe, SWELLING, 10/16/14) CONTRAST DYE (Allergy, Unknown, 08/29/16) DIOZIDE (Allergy, Unknown, 10/16/14) Home Medications Home Medications Active Loperamide (Loperamide Hcl) 2 Mg Capsule 2 Cap PO Q6H 5 Days Sucralfate 1 Gram Tablet 1 Tab PO Q6H 30 Days Dicyclomine HCl 20 Mg Tablet 1 Tab PO Q12H 30 Days Chlorhexidine Gluconate 0.12 % Mouthwash 15 Ml PO Q12H 14 Days Swish and spit Naproxen 500 Mg Tablet 1 Tab PO Q12H Cefuroxime (Cefuroxime Axetil) 500 Mg Tablet 1 Tab PO Q12H 7 Days Reported Loratadine 10 Mg Tablet 1 Tablet PO DAILY Prilosec (Omeprazole) 20 Mg Capsule.dr 1 Cap PO DAILY Oxybutynin Chloride 5 Mg Tablet 1 Tablet PO BID Baclofen 10 Mg Tablet 1 Tablet PO BID Cardizem CD* (Diltiazem HCl) 180 Mg Cap.sr.24h 1 Cap PO DAILY [place]reys 10-325 Tablet (Acetaminophen/Hydrocodone Bitart) 1 Each Tablet 1-2 Tablet PO Q4H Flonase (Fluticasone Propionate) 16 Gm Dixon.susp Spiriva* (Tiotropium [place]) 18 Mcg Cap 18 Mcg IH DAILY Symbicort 160-4.5 Mcg Inhaler (Budesonide/Formoterol Fumarate) 10.2 Gm Hfa.aer.ad 10.2 Gm IH BID Zocor* (Simvastatin) 20 Mg Tablet 20 Mg PO HS Klonopin (Clonazepam) 0.5 Mg Tablet 0.5 Mg PO HS Gabapentin* (Gabapentin) 300 Mg Capsule 300 Mg PO TID Metformin ER* (Metformin HCl) 500 Mg Tab.sr.24h 500 Mg PO BID Past Medical History Past Medical History COPD, recurrent UTI, hypertension Past Surgical History Surgical History Comment Cholecystectomy, appendectomy, tubal ligation Family History Family History: (CAD) Coronary arteriosclerosis FATHER MOTHER (DM Type 2) Diabetes mellitus type 2 MOTHER Past Social History Social History Comment Current smoker, smokes half a pack a day, 50 pack year smoking history, denies consuming alcohol or using recreational drugs Smoking: Non-Smoker Alcohol Use: Occasionally Drug Use: None Lives with: Family, Other Lives In: Home Occupation: employed ROS All Other Systems: Reviewed and Negative ROS As stated above in the HPI, otherwise all systems are reviewed and negative. Genitourinary: Reports: burning, discharge, dysuria, frequency, flank pain, hematuria Exam Vitals: Vital Signs Date Time Temp Pulse Resp B/P (MAP) Pulse Ox O2 Delivery O2 Flow Rate FiO2 12/04/24 22:31 95 16 Room Air 0.0 12/04/24 22:21 93 21 12/04/24 18:46 12/04/24 14:33 100.1 General Appearance: Well developed, well nourished. Awake, alert and oriented x4, resting comfortably in bed, in no acute distress. HEENT: Atraumatic, normocephalic, ELISHA, EOMI. Normal oropharynx, moist oral mucosa. Neck: Trachea midline. Supple, normal ROM. No JVD, bruit, lymphadenopathy or masses, or other lesions. Respiratory: Diffuse bilateral expiratory wheeze Cardiac: RRR, no murmur, rub or gallop. Normal S1 and S2. GI: No tenderness. Abdomen symmetric, nondistended, soft, normal bowel sounds x4 quadrant normoactive. No guarding, no rebound or rigidity. No hepatosplenomegaly. No masses, no bruit, no flank pain bilaterally. Extremities: Normal ROM, no swelling, non-tender. Distal pulses full symmetrical, no clubbing, cyanosis, edema, capillary refill less than 2 seconds. Skin: Intact, dry, warm, no rashes or petechia. Neuro: Speech is clear, alert and oriented x4. No sensory or motor deficit, DTRs normal. Cranial nerves II to XII intact. Psych: Normal affect, good eye contact, no apparent hallucination, normal speech. Diagnostic Data Last Recorded Lab Results: 12/04/24 1511 12/04/24 1511 Advance Care Planning Advanced Care plannin - 30 Minutes Additional Plan Assessment and plan: 62-year-old female with a history of COPD, not on home oxygen, DM, hypertension, recurrent UTI, presenting with dysuria, suprapubic tenderness, urinary frequency, and worsening respiratory symptoms. Recurrent urinary tract infection Suspected persistent UTI UA suggestive of UTI, urine culture pending Longstanding history of recurrent UTIs, current symptoms include dysuria, urgency, frequency, and suprapubic discomfort Failed outpatient oral antibiotics; currently awaiting cystoscopy for hematuria Renal ultrasound no hydronephrosis Long list of medication allergies, need re verification. Rocephin 1 g IV daily initiated Outpatient follow up with upcoming cystoscopy Consider CT urogram if symptoms persist or concern for structural abnormality COPD exacerbation Suspected infectious triggers Reports increased dyspnea, cough with brown sputum, fever with chills Using inhalers and nebulizer with minimal benefits COVID test negative, no leukocytosis Maintain oxygen saturation between 90-94%; supplemental O2 via nasal canula if SpO2 <90% Solu-Medrol 125 mg IV bolus given Solu-Medrol 40 Mg IV twice daily Ceftriaxone 1 g IV daily Macrolide listed as allergen, Azithromycin not initiated DuoNeb nebulization every 4 hours as scheduled, and every 4 hours as needed Incentive spirometry Mild hyponatremia Sodium 133 likely multifactorial, infection, poor oral intake Monitor BMP Diabetes type 2 Hyperglycemia/hypoglycemia protocol in place Follow hemoglobin A1c GERD/PUD Continue omeprazole and sucralfate Chronic back pain Continue home medications DVT prophylaxis: Heparin subQ Code status: Full code Calli Elena Internal Medicine Resident I discussed the patient with the resident and agree with the assessment and plan as above. Yodit Dorman MD Critical Care Date of Service: Dec 04, 2024 Billing Provider: YODIT DORMAN MD,CALLI, RES Dec 04, 2024 23:31 YODIT DORMAN MD Dec 05, 2024 03:40
[2024-12-04] MEDS ORDERED: DEXTROSE 15 GM of carb/4 tabs (each vial/BOTTLE has 4 tablets) PO PRN ×2 (23:45)
[2024-12-04] MEDS ORDERED: glucagon, human recombinant 1mg kit SUBCUT PRN (23:45)
[2024-12-04] MEDS ORDERED: dextrose 50%-water 50ml dispensing syringe IV PRN ×2 (23:45)
[2024-12-05] VITALS (15 sets, daily range): BP systolic 114–151; BP diastolic 52–79; PULSE 77–108; RESP 15–18; TEMP 96.9–97.9; O2SAT 92–97
[2024-12-05] MEDS: sucralfate 1 gm tablet PO SCH (03:43)
[2024-12-05 04:49] LABS: BASOPHILS % (AUTO) 0.2 % (0-1); EOSINOPHILS % (AUTO) 0 % (0-6); HEMATOCRIT 40.6 % (35.0-45.0); HEMOGLOBIN 13.7 g/dl (12.0-16.0); LYMPHOCYTES # (AUTO) 0.5 X10'3 (1.1-4.8); LYMPHOCYTES % (AUTO) 15.3 % (21-51); MEAN CORPUSCULAR HEMOGLOBIN 29.2 PG (27.0-31.0); MEAN CORPUSCULAR HGB CONC 33.6 g/dL (33.0-36.5); MEAN CORPUSCULAR VOLUME 86.8 FL (78-98); MEAN PLATELET VOLUME 7.6 FL (7.4-10.4); MONOCYTES % (AUTO) 1.7 % (2-12); NEUTROPHILS # (AUTO) 2.4 X10'3 (1.8-7.7); NEUTROPHILS % (AUTO) 82.8 % (42-75); PLATELET COUNT 159 X10'3 (140-440); RED BLOOD COUNT 4.68 X10'6 (4.20-5.60); RED CELL DISTRIBUTION WIDTH 13.6 % (11.5-14.5); WHITE BLOOD COUNT 2.9 X10'3 (4.5-11.0)
[2024-12-05 05:09] LABS: ALANINE AMINOTRANSFERASE 13 U/L (12-78); ALBUMIN 2.9 G/DL (3.4-5.0); ALBUMIN/GLOBULIN RATIO 0.8 (1.1-1.5); ALKALINE PHOSPHATASE 73 IU/L (46-116); ANION GAP 7 (8-16); ASPARTATE AMINO TRANSFERASE 21 U/L (10-37); BILIRUBIN,TOTAL 0.2 MG/DL (0.1-1.0); BLOOD UREA NITROGEN 7 MG/DL (7-18); CALCIUM 8.5 MG/DL (8.5-10.1); CHLORIDE 105 MMOL/L (99-107); CHOL/HDL RATIO 4.5 (0.00-4.99); CHOLESTEROL 150 MG/DL (0-200); CREATININE 0.78 MG/DL (0.40-0.90); GLUCOSE 230 MG/DL (70-104); HDL CHOLESTEROL 33 MG/DL (35-60); LDL CHOLESTEROL 99 MG/DL (50-100); POTASSIUM 3.6 MMOL/L (3.5-5.1); SODIUM 139 MMOL/L (135-145); TOTAL CARBON DIOXIDE 27.5 MMOL/L (24-32); TOTAL PROTEIN 6.7 G/DL (6.4-8.2); TRIGLYCERIDES 70 MG/DL (20-135); eCRCL 73 ML/MIN; eGFR 75 ML/MIN
[2024-12-05] MEDS ORDERED: INSULIN LISPRO 100 UNIT/ML INSULN.PEN MULTI-DOSE SQ SCH (07:00)
[2024-12-05 07:36] LABS: TOTAL CELLS COUNTED 100
[2024-12-05 07:37] LABS: PLATELET ESTIMATE NORMAL
[2024-12-05] MEDS: K and/or MAG REPLACEMENT MC SCH (08:00)
[2024-12-05] MEDS: heparin, porcine 5000 units/ml vial SQ SCH (08:00)
[2024-12-05] MEDS: CefTRIAXone/D5W-Rocephin 1gm 50 ML IV SCH (09:11)
[2024-12-05] MEDS: methylPREDNISolone sod succ/PF 40mg inj. IV SCH (09:11)
[2024-12-05] MEDS ORDERED: GABA-535 PO (09:57)
[2024-12-05] MEDS: dicyclomine 10 MG capsule PO SCH (10:16)
[2024-12-05] MEDS: baclofen 10mg tablet PO SCH (10:16)
[2024-12-05] MEDS: oxybutynin 5mg tablet PO SCH (10:16)
[2024-12-05] MEDS: gabapentin 300mg capsule PO SCH (10:17)
[2024-12-05] MEDS: pantoprazole 40mg Tablet.DR PO SCH (10:18)
[2024-12-05] MEDS ORDERED: ALOG25TA2 PO (12:39)
[2024-12-05] MEDS ORDERED: DULA4.5P SQ (12:40)
[2024-12-05] MEDS ORDERED: MIRA25TA5 PO (12:46)
[2024-12-05] MEDS ORDERED: LOSA25TA41 PO (12:55)
[2024-12-05] MEDS ORDERED: RABE20TA32 PO (12:57)
[2024-12-05] MEDS ORDERED: DILT-94 PO (12:59)
[2024-12-05] MEDS ORDERED: MONT-40 PO (13:01)
[2024-12-05] MEDS ORDERED: acetaminophen 325mg tablet PO PRN (15:20)
[2024-12-05] MEDS: HYDROcodone/acetaminophen 10/325mg tab PO PRN (15:45)
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
[2024-12-05] MEDS: docusate sod 100mg capsule PO SCH (19:58)
[2024-12-05] MEDS ORDERED: loperamide 2mg capsule PO SCH (20:00)
[2024-12-05] MEDS ORDERED: chlorhexidine gluconate 15ml Cup****oral rinse MM SCH (20:00)
[2024-12-05] MEDS: clonazePAM 0.5mg tablet PO SCH (20:02)
[2024-12-05] MEDS: simvastatin 20mg tablet PO SCH (21:00)
[2024-12-06] VITALS (15 sets, daily range): BP systolic 103–147; BP diastolic 48–75; PULSE 76–102; RESP 14–20; TEMP 97.6–98.1; O2SAT 93–99
[2024-12-06] MEDS ORDERED: ACYC-126 PO (02:45)
[2024-12-06] MEDS ORDERED: CLIN60SO2 TOP (02:45)
[2024-12-06] MEDS ORDERED: ALBU10.7 PO (02:45)
[2024-12-06] MEDS ORDERED: HYDR-3686 PO (02:53)
[2024-12-06] MEDS ORDERED: PREVCR VG (02:53)
[2024-12-06] MEDS ORDERED: CARB10DR2 EACHEYE (02:53)
[2024-12-06] MEDS ORDERED: CYCL1DRO2 EACHEYE (02:53)
[2024-12-06 04:57] LABS: BASOPHILS % (AUTO) 0.1 % (0-1); EOSINOPHILS % (AUTO) 0 % (0-6); HEMATOCRIT 34.9 % (35.0-45.0); HEMOGLOBIN 11.7 g/dl (12.0-16.0); LYMPHOCYTES # (AUTO) 0.7 X10'3 (1.1-4.8); LYMPHOCYTES % (AUTO) 7.7 % (21-51); MEAN CORPUSCULAR HEMOGLOBIN 29.5 PG (27.0-31.0); MEAN CORPUSCULAR HGB CONC 33.6 g/dL (33.0-36.5); MEAN PLATELET VOLUME 8.2 FL (7.4-10.4); MONOCYTES # (AUTO) 0.5 X10'3 (0-0.9); MONOCYTES % (AUTO) 5.5 % (2-12); NEUTROPHILS # (AUTO) 8.2 X10'3 (1.8-7.7); NEUTROPHILS % (AUTO) 86.7 % (42-75); PLATELET COUNT 170 X10'3 (140-440); RED BLOOD COUNT 3.97 X10'6 (4.20-5.60); RED CELL DISTRIBUTION WIDTH 13.7 % (11.5-14.5); WHITE BLOOD COUNT 9.5 X10'3 (4.5-11.0)
[2024-12-06 05:29] LABS: ALANINE AMINOTRANSFERASE 11 U/L (12-78); ALBUMIN 2.6 G/DL (3.4-5.0); ALBUMIN/GLOBULIN RATIO 0.8 (1.1-1.5); ALKALINE PHOSPHATASE 60 IU/L (46-116); ANION GAP 10 (8-16); ASPARTATE AMINO TRANSFERASE 17 U/L (10-37); BILIRUBIN,TOTAL 0.1 MG/DL (0.1-1.0); BLOOD UREA NITROGEN 9 MG/DL (7-18); BUN/CREATININE RATIO 10.1 (10.0-20.0); CALCIUM 8.6 MG/DL (8.5-10.1); CHLORIDE 105 MMOL/L (99-107); CREATININE 0.89 MG/DL (0.40-0.90); GLUCOSE 291 MG/DL (70-104); POTASSIUM 3.8 MMOL/L (3.5-5.1); SODIUM 140 MMOL/L (135-145); TOTAL CARBON DIOXIDE 24.9 MMOL/L (24-32); eCRCL 64 ML/MIN; eGFR 64 ML/MIN
[2024-12-06] MEDS ORDERED: MIRABEGRON PO SCH (08:00)
[2024-12-06] MEDS ORDERED: non-formulary drug (Diltiazem HCl (Diltiazem 24Hr ER) 1 CAP) PO SCH (08:00)
[2024-12-06] MEDS ORDERED: losartan 25mg tablet PO SCH (08:00)
[2024-12-06] MEDS ORDERED: loratadine 10mg tablet PO SCH (08:00)
[2024-12-06] MEDS: FOSFOMYCIN TROMETHAMINE 3 GM PACKET PO ONE (08:30)
[2024-12-06] MEDS ORDERED: AMIT25TA23 PO (08:34)
[2024-12-06] MEDS ORDERED: GABA-1405 PO (08:34)
[2024-12-06] MEDS: gabapentin 300mg capsule PO SCH (16:51)
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
[2024-12-06] MEDS ORDERED: PRED10TA23 PO (19:38)
[2024-12-06] MEDS: amitriptyline 10mg tablet PO SCH (21:34)
[2024-12-06] MEDS: polyethylene glycol 3350 17gm powd pack PO ONE (22:48)
[2024-12-07] VITALS (11 sets, daily range): BP systolic 102–156; BP diastolic 46–69; PULSE 67–79; RESP 16–20; TEMP 97.6–97.7; O2SAT 95–96
[2024-12-07 06:17] LABS: BASOPHILS % (AUTO) 0.1 % (0-1); EOSINOPHILS % (AUTO) 0.1 % (0-6); HEMATOCRIT 36.7 % (35.0-45.0); HEMOGLOBIN 12.3 g/dl (12.0-16.0); LYMPHOCYTES # (AUTO) 2.2 X10'3 (1.1-4.8); LYMPHOCYTES % (AUTO) 20.7 % (21-51); MEAN CORPUSCULAR HEMOGLOBIN 29.3 PG (27.0-31.0); MEAN CORPUSCULAR HGB CONC 33.6 g/dL (33.0-36.5); MEAN CORPUSCULAR VOLUME 87.3 FL (78-98); MEAN PLATELET VOLUME 7.9 FL (7.4-10.4); MONOCYTES # (AUTO) 0.9 X10'3 (0-0.9); MONOCYTES % (AUTO) 8.6 % (2-12); NEUTROPHILS # (AUTO) 7.4 X10'3 (1.8-7.7); NEUTROPHILS % (AUTO) 70.5 % (42-75); PLATELET COUNT 198 X10'3 (140-440); RED BLOOD COUNT 4.21 X10'6 (4.20-5.60); RED CELL DISTRIBUTION WIDTH 13.8 % (11.5-14.5); WHITE BLOOD COUNT 10.5 X10'3 (4.5-11.0)
[2024-12-07 06:29] LABS: ALANINE AMINOTRANSFERASE 17 U/L (12-78); ALBUMIN 2.8 G/DL (3.4-5.0); ALBUMIN/GLOBULIN RATIO 0.9 (1.1-1.5); ALKALINE PHOSPHATASE 61 IU/L (46-116); ANION GAP 4 (8-16); ASPARTATE AMINO TRANSFERASE 12 U/L (10-37); BILIRUBIN,TOTAL 0.2 MG/DL (0.1-1.0); BLOOD UREA NITROGEN 8 MG/DL (7-18); BUN/CREATININE RATIO 10.8 (10.0-20.0); CALCIUM 8.6 MG/DL (8.5-10.1); CHLORIDE 103 MMOL/L (99-107); CREATININE 0.74 MG/DL (0.40-0.90); GLUCOSE 130 MG/DL (70-104); POTASSIUM 3.3 MMOL/L (3.5-5.1); SODIUM 139 MMOL/L (135-145); TOTAL CARBON DIOXIDE 31.8 MMOL/L (24-32); eCRCL 77 ML/MIN; eGFR 80 ML/MIN
[2024-12-07] MEDS: methylPREDNISolone sod succ/PF 40mg inj. IV SCH (09:18)
[2024-12-07] MEDS ORDERED: HYDR-3973 PO (10:00)
[2024-12-07] MEDS ORDERED: CLON1TAB23 PO (10:00)
[2024-12-07] MEDS ORDERED: LACT10SO78 PO (10:23)
[2024-12-07] MEDS: potassium Cl 20 mEq SR tablet PO PRN (14:26)
[2024-12-07] MEDS: FOSFOMYCIN TROMETHAMINE 3 GM PACKET PO ONE (14:27)
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
== END 2024-12-07 14:47 | disposition home or self-care (01) | DRG 463 ==
LOC: ER 14:29 → ORTHO 4S 20:38
PROVIDERS: ADMIT Internal Medicine Pulmonary Disease; ATTEND Internal Medicine
DX: N39.0 Urinary tract infection, site not specified (principal); E87.1 Hypo-osmolality and hyponatremia; J44.1 Chronic obstructive pulmonary disease with (acute) exacerbation; F17.200 Nicotine dependence, unspecified, uncomplicated; I25.10 Atherosclerotic heart disease of native coronary artery without angina pectoris; Z20.822 Contact with and (suspected) exposure to COVID-19; K27.9 Peptic ulcer, site unspecified, unspecified as acute or chronic, without hemorrhage or perforation; K21.9 Gastro-esophageal reflux disease without esophagitis; G89.29 Other chronic pain; M54.89 Other dorsalgia; I10 Essential (primary) hypertension; Z90.710 Acquired absence of both cervix and uterus; Z90.49 Acquired absence of other specified parts of digestive tract; Z88.1 Allergy status to other antibiotic agents; Z88.5 Allergy status to narcotic agent; Z88.0 Allergy status to penicillin; Z88.2 Allergy status to sulfonamides; Z88.8 Allergy status to other drugs, medicaments and biological substances; Z91.041 Radiographic dye allergy status
CPT/HCPCS: 36415; 71045; 76770; 80053; 80061; 81001; 81025; 83036; 83605; 83690; 83735; 84145; 85007; 85025; 85651; 87040; 87081; 87088; 87811; 93005; 94640; 94760; 96365; 96375; 99285; A4615; G0378; J0696; J1644; J1815; J2405; J2919; J7030

== ENCOUNTER 2025-03-12 16:38 | Emergency (ER) | payer MEDICAID ==
[~2025-03-12] VITALS: Ht 170.2 cm; Wt 89.4 kg
[~2025-03-12 16:38] MED LIST changes: +ACYC-126 PO; +ALBU10.7 PO; +ALOG25TA2 PO; +AMIT25TA23 PO; +CARB10DR2 EACHEYE; -CEFU500T66 PO; +CLIN60SO2 TOP; +CLON1TAB23 PO; +CYCL1DRO2 EACHEYE; +DILT-94 PO; -DILT180C66 PO; +DULA4.5P SQ; +GABA-1405 PO; -GABA-338 PO; +HYDR-3686 PO; +LACT10SO78 PO; +LOSA25TA41 PO; +MIRA25TA5 PO; +MONT-40 PO; +PREVCR VG; +RABE20TA32 PO
--- NOTE | 2025-03-12 17:02 | Physician Documentation ---
History of Present Illness ~ Chief Complaint: Flank Pain Stated Complaint: KIDNEY PAIN Time Seen by MD: 19:08 Primary Medical Doctor: [facility] HPI Patient is seen today with complaints of hematuria with blood in the urine and concerns for flank pain bilaterally that seems to be chronic in nature. Patient states she does have an appointment with Urology coming up soon. Patient denies any fever or chills Patient presents to the emergency room with strange feeling today as she is concerned she may have a urinary tract infection or something else going on therefore came in to be evaluated. Has not appointment two days with urologist. Patient's hematuria is chronic in nature. Medication Reconciliation Allergies: Coded Allergies: Cephalexin Monohydrate (Verified Allergy, Severe, 12/04/24) Penicillins (Verified Allergy, Severe, 12/04/24) Sulfa (Sulfonamide Antibiotics) (Verified Allergy, Severe, 04/10/12) amoxicillin trihydrate (Verified Allergy, Severe, 12/04/24) duloxetine HCl (Verified Allergy, Severe, 12/04/24) erythromycin base (Verified Allergy, Severe, 12/04/24) hydromorphone HCl (Verified Allergy, Severe, 12/04/24) levofloxacin (Verified Allergy, Severe, 12/04/24) lisinopril (Verified Allergy, Severe, 12/04/24) morphine (Verified Allergy, Severe, 12/04/24) niacin (Verified Allergy, Severe, 12/04/24) potassium clavulanate (Verified Allergy, Severe, 12/04/24) simvastatin (Verified Allergy, Severe, 12/04/24) sulfamethoxazole (Verified Allergy, Severe, 12/04/24) tetracycline (Verified Allergy, Severe, 12/04/24) trimethoprim (Verified Allergy, Severe, 12/04/24) Macrolide Antibiotics (Verified Allergy, Unknown, 12/04/24) Quinolones (Verified Allergy, Unknown, 12/04/24) amoxicillin (Verified Allergy, Unknown, 12/04/24) atorvastatin (Verified Allergy, Unknown, 12/04/24) ceftriaxone (Verified Allergy, Unknown, 12/06/24) cefuroxime (Verified Allergy, Unknown, 12/06/24) cephalexin (Verified Allergy, Unknown, 12/04/24) ciprofloxacin (Verified Allergy, Unknown, 12/04/24) clavulanic acid (Verified Allergy, Unknown, 12/04/24) doxycycline (Verified Allergy, Unknown, 12/04/24) duloxetine (Verified Allergy, Unknown, 12/04/24) hydromorphone (Verified Allergy, Unknown, 12/04/24) metronidazole (Verified Allergy, Unknown, 12/06/24) nitrofurantoin (Verified Allergy, Unknown, 12/04/24) prednisone (Verified Allergy, Unknown, 12/04/24) propoxyphene (Verified Allergy, Unknown, 12/04/24) tramadol (Verified Allergy, Unknown, 12/04/24) Uncoded Allergies: CONTRAST (Allergy, Severe, 04/10/12) THYOZIDE (Allergy, Severe, SWELLING, 10/16/14) CONTRAST DYE (Allergy, Unknown, 08/29/16) DIOZIDE (Allergy, Unknown, 10/16/14) Scheduled Acyclovir (Acyclovir), 1 TAB PO BID, (Reported) Albuterol Sulfate/Budesonide (Airsupra 90-80 Mcg Inhaler), 2 PUFFS PO Q4H, (R eported) Alogliptin Benzoate (Alogliptin), 1 TAB PO DAILY, (Reported) Amitriptyline Hcl (Amitriptyline Hcl), 1 TAB PO HS Baclofen (Baclofen), 1 TABLET PO BID, (Reported) Budesonide/Formoterol Fumarate (Symbicort 160-4.5 Mcg Inhaler), 10.2 GM IH BID, (Reported) Carboxymethylcellulos/Glycerin (Refresh Optive Gel Eye Drops), DROP EACHEYE DAILY, (Reported) Chlorhexidine Gluconate (Chlorhexidine Gluconate), 15 ML PO Q12H Clonazepam (Klonopin), 0.5 MG PO HS, (Reported) Clonazepam (Clonazepam), 1 TAB PO DAILY Cyclosporine (Restasis), DROP EACHEYE BID, (Reported) Dicyclomine HCl (Dicyclomine HCl), 1 TAB PO Q12H Diltiazem HCl (Diltiazem 24Hr ER), 1 CAP PO DAILY, (Reported) Dulaglutide (Trulicity), 0.5 ML SQ Q7D, (Reported) Estrogens,Conjugated (PREMARIN Vaginal Cream), 1 GM VG MWF, (Reported) Gabapentin (Gabapentin), 1 TAB PO Q8H Hydrocodone Bit/Acetaminophen ([place] 10-325 Tablet), 1-2 TABLET PO Q4H, (Reported) Hydroxyzine Hcl* (Atarax*), 1 TAB PO DAILY, (Reported) Lactulose (Lactulose), 30 ML PO Q12H Loperamide Hcl (Loperamide), 2 CAP PO Q6H Loratadine (Loratadine), 1 TABLET PO DAILY, (Reported) Losartan Potassium (Losartan Potassium), 0.5 TAB PO DAILY, (Reported) Metformin Hcl* (Metformin ER*), 500 MG PO BID, (Reported) Mirabegron (Mirabegron ER), 1 TAB PO DAILY, (Reported) Montelukast Sodium (Montelukast Sodium), 1 TAB PO DAILY, (Reported) Naproxen (Naproxen), 1 TAB PO Q12H Omeprazole (Prilosec), 1 CAP PO DAILY, (Reported) Oxybutynin Chloride (Oxybutynin Chloride), 1 TABLET PO BID, (Reported) Rabeprazole Sodium (Rabeprazole Sodium), 1 TAB PO DAILY, (Reported) Simvastatin* (Zocor*), 20 MG PO HS, (Reported) Sucralfate (Sucralfate), 1 TAB PO Q6H Sucralfate (Sucralfate), 1 TAB PO Q8H Tiotropium [place]* (Spiriva*), 18 MCG IH DAILY, (Reported) Scheduled PRN Hydrocodone Bit/Acetaminophen (Hydrocodone-Apap 10-325 Tablet), 1 TAB PO TID PRN PRN for pain Miscellaneous Medications Clindamycin Phosphate (Clindamycin Phosphate), 1 UNIT TOP, (Reported) Fluticasone Propionate (Flonase), (Reported) Past Medical History Past Medical History: Hypertension, Constipation, Diverticulosis, GERD Past Surgical History: appendectomy, cholecystectomy, hysterectomy, orthopedic surgeries, other Patient History: (CAD) Coronary arteriosclerosis FATHER MOTHER (DM Type 2) Diabetes mellitus type 2 MOTHER Alcohol Use: Occasionally Drug Use: none Lives with: Family, Other Lives In: Home Occupation: employed Review of Systems ROS All review of systems negative except as per HPI Physical Exam Vital Signs: Temperature: 97.2, Source: Temporal, Heart Rate: 89, Respiratory Rate: 18, BP: 158/91, Pulse Oximetry: 97, Weight: 89.400 Oxygen Flow Rate: 0 Physical Exam General: Patient is awake, alert, oriented x4 in no acute distress and well appearing.~ Head: Normocephalic and atraumatic. Eyes: Conjunctival normal. EOMI. PERRL. ENT: Mucous membranes moist. Neck: Supple, trachea is midline. Chest: Clear to auscultation bilaterally without rales, rhonchi, or wheezes. There is no accessory muscle use or retractions. Cardiac: RRR without murmurs, gallops, or rubs. Back: Right-sided flank tenderness to palpation. Patient makes adjustments in her bed occasionally without limitation or signs of discomfort Progress Results/Orders Results/Orders Vital Signs 03/12/25 03/12/25 03/12/25 03/12/25 16:51 17:19 17:53 18:50 Temp 97.2 97.2 Pulse 89 78 73 Resp 18 18 16 16 B/P (MAP) 158/91 143/72 (95) 160/89 (112) Pulse Ox 97 98 98 O2 Flow Rate 0 0 0 03/12/25 19:37 Pulse 74 Resp 16 B/P (MAP) 156/89 Pulse Ox 95 Laboratory Tests Test 03/12/25 16:55 03/12/25 16:59 Urine Specimen Description Cln catch midstream Urine Color Yellow Urine Clarity Clear Urine pH 6.0 Urine Specific [place] 1.015 Urine Protein Negative Urine Glucose (UA) Negative Urine Ketones Trace H Urine Occult Blood Moderate H Urine Nitrite Negative Urine Bilirubin Negative Urine Urobilinogen 0.2 Urine Leukocyte Esterase Negative Urine RBC 3-10 Urine WBC 0-4 Urine Squamous Epithelial Cells None seen Urine Bacteria None seen Urine Culture Indicated Not ind Volume Urine Centrifuged 10 ml Urine HCG, Qualitative Negative Urine Comment White Blood Count 8.0 Red Blood Count 4.78 Hemoglobin 13.9 Hematocrit 41.1 Mean Corpuscular Volume 86.1 Mean Corpuscular Hemoglobin 29.2 Mean Corpuscular Hemoglobin Concent 33.9 Red Cell Distribution Width 14.6 H Platelet Count 268 Mean Platelet Volume 8.0 Neutrophils (%) (Auto) 61.0 Lymphocytes (%) (Auto) 28.2 Monocytes (%) (Auto) 9.0 Eosinophils (%) (Auto) 1.3 Basophils (%) (Auto) 0.5 Neutrophils # (Auto) 4.9 Lymphocytes # (Auto) 2.3 Monocytes # (Auto) 0.7 Eosinophils # (Auto) 0.1 Basophils # (Auto) 0.0 CBC Comment Sodium Level 140 Potassium Level 3.3 L Chloride Level 102 Carbon Dioxide Level 34.2 H Anion Gap 4 L Blood Urea Nitrogen 11 Creatinine 0.82 Estimated GFR/1.73 m2 71 BUN/Creatinine Ratio 13.4 Glucose Level 122 H Calcium Level 8.8 Total Bilirubin 0.2 Aspartate Amino Transf (AST/SGOT) 15 Alanine Aminotransferase (ALT/SGPT) 12 Alkaline Phosphatase 71 Total Protein 7.2 Albumin 3.6 Globulin 3.6 Albumin/Globulin Ratio 1.0 L Lipase 52 Chemistry Comments Medical Decision Making Findings Patient presents to the emergency room with chronic back pain. She does have history of pyelonephritis with resistant organisms. Differentials include but are not limited to lumbago, pyelonephritis, aortic pathology, shingles. Physical exam is reassuring as his labs. He had not feel patient requires an additional CT scan. Low suspicion for aortic pathology. Urinalysis is reassuring. She has excellent follow up Departure Disposition: 01 HOME / SELF CARE / HOMELESS Impression: Primary Impression: Lumbago Condition: Stable Discharge Instructions: Chronic Back Pain Referrals: NO PRIMARY CARE PROVIDER (PCP) Prescriptions Hydrocodone Bit/Acetaminophen (Hydrocodone-Apap 10-325 Tablet) 10mg/325mg Tablet 1 TAB PO TID PRN PRN for pain, #7 TAB Prov: KENDALL GARCIA MD 03/12/25 Sucralfate (Sucralfate) 1 Gram Tablet 1 TAB PO Q8H, #90 TAB 0 Refills Prov: KENDALL GARCIA MD 03/12/25 Signature Scribe Signature: No scribe Attestation: The note accurately reflects work and decisions made by me.Kendall Garcia MD 03/12/25 19:29 SAURABH RODGERS Mar 12, 2025 17:02 KENDALL GARCIA MD Mar 12, 2025 19:29
[2025-03-12 17:24] LABS: MEAN PLATELET VOLUME 8.0 FL (7.4-10.4); RED CELL DISTRIBUTION WIDTH 14.6 % (11.5-14.5)
[2025-03-12 17:27] LABS: LEUKOCYTE ESTERASE ,URINE NEGATIVE (Neg); NITRITES, URINE NEGATIVE (Neg); OCCULT BLOOD,URINE MODERATE (Neg)
[2025-03-12 17:29] LABS: UA COLLECTION TYPE CLN CATCH MIDSTREAM
[2025-03-12 17:33] LABS: URINE HCG NEGATIVE (NEG)
[2025-03-12 17:34] LABS: SQUAMOUS EPITHELIAL CELL,UR NONE SEEN /LPF (FEW)
[2025-03-12 17:41] LABS: CREATININE 0.82 MG/DL (0.40-0.90); TOTAL CARBON DIOXIDE 34.2 MMOL/L (24-32); eCRCL 69 ML/MIN; eGFR 71 ML/MIN
[2025-03-12 17:53] VITALS: TEMP 97.2
[2025-03-12] MEDS ORDERED: SUCR1TAB PO (19:26)
[2025-03-12] MEDS ORDERED: HYDR-3973 PO (19:26)
[2025-03-12 19:37] VITALS: BP 156/89; PULSE 74; RESP 16; O2SAT 95
== END 2025-03-12 19:38 | disposition home or self-care (01) ==
LOC: ER 16:39
DX: M54.50 Low back pain, unspecified (principal); E11.9 Type 2 diabetes mellitus without complications; I10 Essential (primary) hypertension; K21.9 Gastro-esophageal reflux disease without esophagitis; I25.10 Atherosclerotic heart disease of native coronary artery without angina pectoris; Z88.1 Allergy status to other antibiotic agents; Z88.0 Allergy status to penicillin; Z88.2 Allergy status to sulfonamides; Z88.5 Allergy status to narcotic agent; Z88.8 Allergy status to other drugs, medicaments and biological substances; Z90.49 Acquired absence of other specified parts of digestive tract; Z90.710 Acquired absence of both cervix and uterus; Z79.899 Other long term (current) drug therapy; Z79.84 Long term (current) use of oral hypoglycemic drugs; Z72.89 Other problems related to lifestyle
CPT/HCPCS: 36415; 80053; 81001; 81025; 83690; 85025; 99283